=== PATIENT | female | born 1955 | race Caucasian/White ===

== ENCOUNTER 2016-06-05 12:49 | Emergency (ER) | payer OTHER ==
[2016-06-05 13:01] VITALS: BP 110/85
== END 2016-06-05 13:40 | disposition left against medical advice (07) ==
LOC: ER 12:49
DX: Z53.21 Procedure and treatment not carried out due to patient leaving prior to being seen by health care provider (principal)

== ENCOUNTER 2016-06-18 06:52 | Emergency (ER) | payer OTHER ==
[2016-06-18] MEDS ORDERED: KETOROLAC TROMETHAMINE 60 MG/2 ML VIAL IM ONE ×2 (07:19→07:22)
--- NOTE | 2016-06-18 07:38 | ERNOTE ---
<Candice Doll - Last Filed: 06/18/16 07:47> Abdominal HPI - Narrative Date of Service: 06/18/16 - General Chief Complaint: Abdominal Pain Source: patient - Immun/Allergies/Home Medications Immunizatons: IMMUNIZATION HX Immunizations Up to Date Yes History of Influenza Vaccine No Hx Pneumococcal Vaccination Yes Allergies/Adverse Reactions: Allergies iodine Allergy (Verified 06/18/16 07:09) Anaphylaxis Home Medications: HOME MEDICATIONS Albuterol Sulfate 2.5 mg IH Q4H PRN #25 vial.neb 03/18/15 [Last Taken Unknown] Amitriptyline HCl [Elavil] 10 mg PO HS 06/18/16 [Last Taken Unknown] Aspirin [Aspirin Chewable] 81 mg PO DAILY 06/18/16 [Last Taken Unknown] Atorvastatin Calcium [Lipitor] 80 mg PO DAILY 06/18/16 [Last Taken Unknown] Diazepam [Valium] 2 mg PO DAILY 06/18/16 [Last Taken Unknown] Magnesium Citrate [Citrate of Magnesia] 300 ml PO TID #6 btl 06/18/16 [Last Taken Unknown] Methocarbamol [Robaxin] 500 mg PO HS 06/18/16 [Last Taken Unknown] Prochlorperazine Maleate [Compazine] 10 mg PO QID PRN 06/18/16 [Last Taken Unknown] Promethazine HCl [Phenergan (Promethazine)] 25 mg PO QID PRN #30 tab 06/18/16 [ Last Taken Unknown] Tramadol HCl [Tramadol HCl ER] 100 mg PO PRN PRN 06/18/16 [Last Taken Unknown] - History of Present Illness Narrative: pt was recently diagnosed with a ventral hernia and scheduled to see her surgeon in [place]. Here for abd pain - Patient's Past Medical History Patient History - Medical: Migraines, Osteoarthritis Patient History - Cardiac/Respiratory: COPD Patient History - Cancer: No Hx of Cancer Patient History - Surgical Procedures: Appendectomy, Hysterectomy, Other Patient History - Other: None - Social History Living Situations: other Abuse History: No History of abuse Psych History: No pertinent hx Smoking Status: Current every day smoker Have you smoked in the past 12 months: Yes Alcohol Use: none Drug Use: none - Immunizations Immunizations Up to Date: Yes Hx Pneumococcal Vaccination: Yes History of Influenza Vaccine: No ED Progress - Vital Signs Patient's Vital Signs:: I have reviewed the patient's vital signs. Vital Signs: Vital Signs 06/18/16 07:06 Temperature 37 C Pulse Rate 90 Respiratory 14 Rate Blood Pressure 133/77 O2 Sat by Pulse 95 Oximetry - Progress/Reassessment Chief Complaint: Abdominal Pain - Transfer of Care Physician Sign Out: Candice Doll Receiving Physician: Jonathan Layton Pending Results: Labs, X-ray results Departure - Departure Clinical Impression: Abdominal pain Qualifiers: Abdominal location: right lower quadrant Qualified Code(s): R10.31 - Right lower quadrant pain Disposition: Home self-care Condition: Good Instructions: Abdominal Pain, Adult, [id number], Ventral Hernia, Constipation , Adult, [id number] Additional Instructions: Follow up with your planned doctor's appt in 4 days. Prescriptions: Magnesium Citrate [Citrate of Magnesia] 300 ml PO TID #6 btl Promethazine HCl [Phenergan (Promethazine)] 25 mg PO QID PRN #30 tab PRN Reason: abdominal pain <Jonathan Layton - Last Filed: 06/18/16 09:54> Abdominal HPI - Immun/Allergies/Home Medications Immunizatons: IMMUNIZATION HX Immunizations Up to Date Yes History of Influenza Vaccine No Hx Pneumococcal Vaccination Yes ED Progress - Results and Orders Patient's Lab Results:: I have reviewed the patient's lab results. - Vital Signs Patient's Vital Signs:: I have reviewed the patient's vital signs. Vital Signs: Vital Signs 06/18/16 06/18/16 07:06 08:19 Temperature 37 C Pulse Rate 90 67 Respiratory 14 14 Rate Blood Pressure 133/77 116/48 O2 Sat by Pulse 95 96 Oximetry - X-Ray X-Ray #1 X-Ray: abdomen Interpretation: Interp. by me - stool on right side of abdomen - Progress/Reassessment Progress Note-Subjective: 06/18/16 09:51 I have reviewed the record, examined the patient, and discussed this with the ER doctor who saw her on the shift prior to mine. The patient is perhaps a little better, following injected pain medication here. She has a follow up with a surgeon for abdominal pain and hernia in 4 days.
[2016-06-18 08:17] LABS: Urine Bilirubin Negative (NEGATIVE); Urine Blood Negative /ul (NEGATIVE); Urine Ketone Negative (NEGATIVE); Urine Nitrite Negative (NEGATIVE); Urine Protein Negative (NEGATIVE); Urine Urobilinogen Normal (NORMAL)
[2016-06-18 08:27] LABS: Urine Appearance Clear; Urine Color Yellow; Urine RBC None Seen /hpf (0-5); Urine WBC None Seen /hpf (0-5)
[2016-06-18 08:28] LABS: Urine Bacteria TRACE
[2016-06-18 09:44] LABS: Mean Cell Volume 93.7 fl (78-100); Mean Corpuscular Hemoglobin 30.5 pg (27-31); Mean Corpuscular Hgb Conc 32.6 g/dl (32-36); Neutrophil % 60.6 % (42-75.0); Platelet Count 287 K/mm3 (150-450); Red Blood Count 4.91 M/mm3 (4.2-5.4); Red Cell Distribution Width 12.6 % (11.5-14.0); White Blood Count 9.9 K/mm3 (4.0-10.5)
[2016-06-18 09:52] LABS: Anion Gap 9.9 mmol/L (6.8-13.8); BUN/Creatinine Ratio 19.5 (9.0-21.6); Carbon Dioxide 28.2 mmol/L (24-32.6); Estimated Creat Clear 75.6; Potassium 4.1 mmol/L (3.4-4.6)
[2016-06-18 10:19] VITALS: BP 122/77
== END 2016-06-18 10:25 | disposition home or self-care (01) ==
LOC: ER 06:52
DX: R10.31 Right lower quadrant pain (principal); F17.210 Nicotine dependence, cigarettes, uncomplicated